=== PATIENT | female | born 1975 | race Caucasian/White ===

== ENCOUNTER 2021-03-13 01:28 | Day surgery (SDC) | payer OTHER, SELFPAY ==
[2021-03-02 10:18] VITALS: BMI 18.9
--- NOTE | 2021-03-13 07:25 | PM.HPGS ---
History of Present Illness History of Present Illness Consent: Risks, benefits, and alternatives have been discussed and questions answered. Patient agrees to proceed with procedure. Chief complaint: abnormal uterine bleeding Narrative: Bina Tineo is a 46 year old female with heavy cycles changing a tampon every hour. Cycles remain regular. Recommend workup with hysteroscopy D&C. Risks of infection, bleeding, perforation, and possible pathology were reviewed. Questions were answered and patient agrees to proceed. Review of Systems Review of Systems: not repeated day of surgery; patient states no changes in status All systems reviewed & are unremarkable except as noted in HPI and below PMFSH Past Medical History Medical History (Updated 03/13/21 @ 07:31 by Betsey Christensen MD) Migraines (normal spontaneous vaginal delivery) x1 Surgical History Surgical History (Updated 03/13/21 @ 07:30 by Betsey Christensen MD) History of X2 Status post breast augmentation 2006 Status post breast biopsy 2009 benign Status post cone biopsy of cervix 1993 Status post LEEP (loop electrosurgical excision procedure) of cervix 2004 Status post skin graft Left hand Status post tubal ligation Social History Social History Smoking packs per day: 1 Smoking cigarettes per day: 20.0 Years smoked: 12 Smoking pack-years: 12.00 Smoking status: Former smoker Tobacco type: cigarettes Second hand tobacco smoke exposure: No Substance use: never Substance use type: does not use Last use: 2009 Living arrangements: with family Spiritual care concerns: No Meds Home Medications and Allergies Home Medications Medication Instructions Recorded Confirmed Type calcium carbonate [Calcium 500] 500 mg PO DAILY 03/02/21 03/02/21 History diphenhydramine HCl [Wal-Lacho 50 mg PO HS 03/02/21 03/02/21 History (diphenhydramine)] multivit with min-folic acid 1 tablet PO DAILY 03/02/21 03/02/21 History [Adult One Daily Multivitamin] zolpidem 10 mg PO HS 03/02/21 03/02/21 History Allergies Allergy/AdvReac Type Severity Reaction Status Date / Time No Known Allergies Allergy Verified 03/02/21 10:44 Exam Const: General: healthy appearing and alert Orientation/consciousness: patient oriented x3 Resp: Effort & Inspection: normal respiratory effort Auscultation: clear to auscultation bilaterally Cardio: Rate: regular rate Rhythm: regular rhythm GI: GI Palp: Yes Soft to palpation, No Tenderness to palpation present (GI) and No Palpable mass present : External Female Exam: normal external appearance Speculum Exam - Vagina: normal appearance of the vagina and normal vaginal discharge Speculum Exam - Cervix: normal appearance of the cervix Bimanual exam- vagina & uterus: uterine size normal and consistency normal Bimanual Exam- Adnexa, other: normal adnexae and No adnexal tenderness Neuro: General: patient oriented x3 Assessment and Plan Assessment and plan (1) Menorrhagia: Code(s): N92.0 - Excessive and frequent menstruation with regular cycle Status: Acute Assessment and Plan: Plan to proceed with D&C hysteroscopy
--- NOTE | 2021-03-13 07:31 | WPDHPUPDATE1 ---
History and Physical Update Update Date/Time: 03/13/21 07:31 History and Physical has been reviewed, including an updated exam of the patient. There are NO changes in the patient's condition. Risks, benefits, and alternatives have been discussed and questions answered. Patient agrees to proceed with procedure.
[2021-03-13] MEDS: LACTATED RINGERS 1,000 ML 30 ML IV CONT (08:30)
[2021-03-13] MEDS: ACETAMINOPHEN 500 MG TABLET 1000 MG PO (08:30)
--- NOTE | 2021-03-13 09:09 | P.PNAN_ITS ---
Anes - Initial Pre Proc Eval Procedure: Operation Date: 03/13/21 09:45 Proposed Procedures p Hysteroscopy Dilation and Curettage - Betsey Christensen MD Date/Time: 03/13/21 09:09 Surgeon: Betsey Christensen MD Pre Op Diagnosis: abnormal uterine bleeding Patient Data Age: 46 Gender: F Height: 1.63 m Weight: 50 kg Allergies Allergy/AdvReac Type Severity Reaction Status Date / Time azithromycin Allergy Unknown Verified 03/13/21 08:29 Home Medications Medication Instructions Recorded Confirmed Type calcium carbonate [Calcium 500] 500 mg PO DAILY 03/02/21 03/02/21 History diphenhydramine HCl [Wal-Lacho 50 mg PO HS 03/02/21 03/02/21 History (diphenhydramine)] multivit with min-folic acid 1 tablet PO DAILY 03/02/21 03/02/21 History [Adult One Daily Multivitamin] zolpidem 10 mg PO HS 03/02/21 03/02/21 History Patient hx anesthesia problems: none Family hx anesthesia problems: none Results Review: All pre-operative results and documents have been reviewed as part of the pre-operative evaluation. [facility] Past Medical History Medical History Migraines (normal spontaneous vaginal delivery) x1 Surgical History Surgical History History of X2 Status post breast augmentation 2006 Status post breast biopsy 2008 benign Status post cone biopsy of cervix 1993 Status post LEEP (loop electrosurgical excision procedure) of cervix 2004 Status post skin graft Left hand Status post tubal ligation Social History Social History Smoking packs per day: 1 Smoking cigarettes per day: 20.0 Years smoked: 12 Smoking pack-years: 12.00 Smoking status: Former smoker Tobacco type: cigarettes Second hand tobacco smoke exposure: No Substance use: never Substance use type: does not use Last use: 2009 Living arrangements: with family Spiritual care concerns: No Anes - Eval Final PreProcedure Day of Procedure 03/13/21 09:09 Patient weight: thin Heart: regular rate and rhythm Lungs: clear to auscultation Airway: Mallampati scale Neurological: alert and oriented Last oral intake: >/= 8 hours ASA classification: II Emergent: no Anesthetic plan: proceed Anesthesia type and monitoring: general GIVS and standard monitoring Results Review: All pre-operative results and documents have been reviewed as part of the pre-operative evaluation. Informed Consent: The patient's anesthetic plan and its attendant risks and benefits were discussed with the patient/family/POA. Questions were solicited and answers provided to the satisfaction of the patient/family/POA.
[2021-03-13 09:18] VITALS: BP 105/59; PULSE 58; RESP 14; TEMP 37.6; O2SAT 100; BMI 19.8
[2021-03-13] MEDS: KETOROLAC 30 MG/ML VIAL (*BKC) IV PUSH (10:02)
--- NOTE | 2021-03-13 10:08 | W.PM.PROC2 ---
Procedure Note - Detailed Date of Procedure 03/13/21 Pre-op Diagnosis abnormal uterine bleeding Post-op Diagnosis same Procedure Performed D and C hysteroscopy Surgeon Betsey Christensen MD Anesthesia MAC and local Findings Internal os is very stenotic; uterus appears grossly atrophic with no lesions Description of Procedure The patient is taken to the operating room and placed under anesthesia in the dorsal lithotomy position. She is prepped and draped in usual sterile fashion. [place] speculum was placed in the vagina and the cervix is grasped on the anterior lip with a tenaculum. The cervix is injected in each quadrant with 1% lidocaine. The uterus is attempted to be sounded but due to internal stenosis unable to sound this time. The small dilator it is used and the internal os is able to be entered. Cervix is serially dilated to an 8 Hegar. The uterus is then sounded to 8cm. The diagnostic hysteroscope was placed with the stated findings. The internal os is very shaggy appearing due to the difficulty entering. The hysteroscope was removed in the sharp curette used to sharply curette the endometrium until a good uterine cry was noted in all areas. Minimal material was obtained consistent with the appearance. All instruments are removed. Sponge, needle, and instrument counts are correct per the OR staff. Estimated Blood Loss 5 Drains No Packing No Pathology yes (Endometrial) Complications No immediate complications Condition stable Disposition PACU
[2021-03-13 10:11] VITALS: BP 112/70; PULSE 64; RESP 14; O2SAT 97
[2021-03-13 10:40] VITALS: BP 110/67; PULSE 51
[2021-03-13 11:00] VITALS: BP 103/67; PULSE 53
== END 2021-03-13 11:07 | disposition home or self-care (01) ==
PROVIDERS: PCP Internal Medicine; Visit Provider Obstetrics & Gynecology Gynecology
PROC: 0U5B8ZZ Destruction of Endometrium, Via Natural or Artificial Opening Endoscopic (ICD-10-PCS; CPT 58563; principal; 2021-03-13 09:45)
DX: N93.9 Abnormal uterine and vaginal bleeding, unspecified (principal); N92.0 Excessive and frequent menstruation with regular cycle; N88.2 Stricture and stenosis of cervix uteri; Z87.891 Personal history of nicotine dependence
CPT/HCPCS: 58558; 88305; A9270; J1885; J2250; J2704; J3010; J7030; J7120

== ENCOUNTER 2022-11-30 12:39 | Outpatient (CLI) | payer OTHER, SELFPAY ==
[2022-11-30 13:21] LABS: INR 0.9; Prothrombin Time 12.4 Seconds (11.1-14.7)
[2022-11-30 13:22] LABS: Partial Thromboplastin Time 25.5 SECONDS (22.3-36.8)
[2022-11-30 13:23] LABS: Potassium 4.2 mmol/L (3.4-5.0)
[2022-11-30 13:30] LABS: Anion Gap 7 mmol/L (8-16); Blood Urea Nitrogen 13 mg/dL (7-17); Calcium 9.5 mg/dL (8.4-10.2); Carbon Dioxide 30 mmol/L (22-30); Chloride 100 mmol/L (98-107); Estimated Glomerular Filt Rate > 60; Glucose 89 mg/dL (65-110); Sodium 137 mmol/L (137-145)
== END 2022-11-30 12:40 | disposition home or self-care (01) ==
LOC: ANHSURGERY 12:43
PROVIDERS: Anesthesiology; PCP Internal Medicine; Visit Provider Obstetrics & Gynecology Gynecology
DX: B15.9 Hepatitis A without hepatic coma (principal); Z01.818 Encounter for other preprocedural examination
CPT/HCPCS: 36415; 80048; 85610; 85730

== ENCOUNTER 2022-12-03 02:59 | Day surgery (SDC) | payer OTHER, SELFPAY ==
--- NOTE | 2022-11-26 14:17 | SUR.PREOP ---
Report to the Outpatient Waiting Room, entrance under the green pavilion located off [facility], at time 0830 on date 12/03/22. Planned Procedure Time: 1030. Time changes happen often and if your time is changed the preop area will call you the afternoon before. - You and your visitor will be asked to self-screen and do not enter if you have any COVID symptoms. - A mask is optional within the hospital at this time. Patients may have clear liquids (water, carbonated beverages, clear teas, apple juice) until 3 hours prior to surgery with a maximum of 20 ounces. - No food from midnight until time of surgery - NO CLEAR LIQUIDS AFTER 0730 - Infants may have breast milk until 4 hours before surgery, formula 6 hours prior to surgery. - Children will be allowed to drink immediately following surgery. If applicable, please bring a bottle or sippy cup to assist with drinking. Juice, water, soda, and popsicles are readily available. For infants on formula, please bring formula the day of surgery. Pacifiers are allowed. Take the following medications with a SIP of water the morning of surgery: N/A DO NOT STOP ANY OF YOUR OTHER PRESCRIPTION MEDICATIONS PRIOR TO SURGERY ?EXCEPT THE FOLLOWING Medications to discontinue per physician ___STOP VITAMINS & SUPPLEMENTS 11/30/22 Please no make-up, nail estonian, hairspray, perfume, deodorant, or body powder the day of surgery. No jewelry (including any body piercings) or valuables the day of surgery, leave them at home. Please take a shower or bath the night before, or the morning of, surgery with an antibacterial soap. Wear comfortable, loose fitting clothing. Children are encouraged to wear pajamas. - Jewelry must be removed prior to entering the operating room. Rings and piercings that are not removed may be cut off. - The hospital will not accept responsibility for valuables. - Please leave all valuables, including medications, at home the day of surgery. If you are going home after surgery, a licensed electric pile driver operator must drive you home. - NO public transportation without another adult if you receive anesthesia. - We recommend that an adult stay with you for 24 hours following discharge. - We also recommend that you do not drive, make important decision, drink alcoholic beverages, or take any drugs that were not prescribed by your health care provider for at least 24 hours after your discharge time. For Pediatric surgeries, we recommend two adults accompany the child home. Follow any additional instructions given to you from your surgeon. If you or anyone in your household have experienced Covid symptoms in the past week, please notify your surgeon or the nurse liaison at the phone number below for possible testing. Telephone instructions given to LESLIE RAMOS and asked if any additional questions and then verbalized understanding. Patient advised to call surgeon office or pre surgery nurse liaison [phone] if any additional questions.
[2022-11-26 14:23] VITALS: BMI 20.6
--- NOTE | 2022-11-30 18:15 | WPDANESEPP ---
Anes - Eval Pre Procedure Procedure: Operation Date: 12/03/22 09:45 Proposed Procedures p Hysteroscopy Dilation and Curettage - Betsey Christensen MD Date/Time: 11/30/22 18:15 Pre Op Diagnosis: menorrhagia Patient Data Age: 47 Gender: F Height: 1.63 m Weight: 54.6 kg Allergies Allergy/AdvReac Type Severity Reaction Status Date / Time azithromycin Allergy Severe FAINT Verified 11/26/22 14:07 acetaminophen AdvReac Severe Other Verified 11/26/22 14:08 Home Medications Medication Instructions Recorded Confirmed Type calcium carbonate 500 mg calcium 500 mg PO DAILY 03/02/21 11/26/22 History (1,250 mg) tablet (Calcium 500) diphenhydramine HCl 50 mg capsule 50 mg PO HS 03/02/21 11/26/22 History (Wal-Lacho (diphenhydramine)) zolpidem 10 mg tablet 10 mg PO HS 03/02/21 11/26/22 History norgestimate 0.25 mg-ethinyl 1 tablet PO DAILY 11/26/22 11/26/22 History estradiol 35 mcg tablet (Estarylla) Patient hx anesthesia problems: post op nausea/vomiting Family hx anesthesia problems: none Results Review: All pre-operative results and documents have been reviewed as part of the pre-operative evaluation. [facility] Past Medical History Medical History (Updated 11/30/22 @ 18:15 by Sloane Haynes CRNA) Hepatitis A Migraines (normal spontaneous vaginal delivery) x1 PONV (postoperative nausea and vomiting) Surgical History Surgical History History of X2 Status post breast augmentation 2006 Status post breast biopsy 2009 benign Status post cone biopsy of cervix 1993 Status post LEEP (loop electrosurgical excision procedure) of cervix 2004 Status post skin graft Left hand Status post tubal ligation Social History Social History Smoking packs per day: 1 Smoking cigarettes per day: 20.0 Years smoked: 12 Smoking pack-years: 12.00 Smoking status: Former smoker Tobacco type: cigarettes Second hand tobacco smoke exposure: No Substance use: current Substance use type: marijuana Other substance usage details: EDIBLES NOT OFTEN Last use: 2010 Living arrangements: with family Spiritual care concerns: No Exam Day of Procedure 11/30/22 18:15
--- NOTE | 2022-12-03 07:32 | WPDHPUPDATE1 ---
History and Physical Update Update Date/Time: 12/03/22 07:32 History and Physical has been reviewed, including an updated exam of the patient. There are NO changes in the patient's condition. Risks, benefits, and alternatives have been discussed and questions answered. Patient agrees to proceed with procedure.
--- NOTE | 2022-12-03 07:32 | PM.HPGS ---
History of Present Illness History of Present Illness Consent: Risks, benefits, and alternatives have been discussed and questions answered. Patient agrees to proceed with procedure. Chief complaint: menorrhagia Narrative: Bina Tineo is a 47 year old female with a history of menorrhagia. She was placed on Xulane patch after D&C hysteroscopy March of 2021. She had a lot of breakthrough bleeding with this and was switched to oral contraceptives. She initially did well but now continues with breakthrough bleeding. She states she has not missed pills. The patient called the office stating she wished to proceed with an endometrial ablation. As it has been well over a year was recommended to proceed with D&C hysteroscopy prior to ablation. Patient presents for D&C hysteroscopy. Risks of infection, bleeding, perforation, and possible pathology were discussed. Patient voices understanding and agrees to proceed. Review of Systems Review of Systems: not repeated day of surgery; patient states no changes in status PMFSH Past Medical History Medical History (Updated 12/03/22 @ 08:42 by Betsey Christensen MD) Hepatitis A Migraines (normal spontaneous vaginal delivery) x1 PONV (postoperative nausea and vomiting) Surgical History Surgical History (Updated 12/03/22 @ 07:35 by Betsey Christensen MD) History of X2 History of hysteroscopy 04/02 benign finding Status post breast augmentation 2006 Status post breast biopsy 2008 benign Status post cone biopsy of cervix 1993 Status post LEEP (loop electrosurgical excision procedure) of cervix 2004 Status post skin graft Left hand Status post tubal ligation Social History Social History Smoking packs per day: 1 Smoking cigarettes per day: 20.0 Years smoked: 12 Smoking pack-years: 12.00 Smoking status: Former smoker Tobacco type: cigarettes Second hand tobacco smoke exposure: No Substance use: current Substance use type: marijuana Other substance usage details: EDIBLES NOT OFTEN Last use: 2009 Living arrangements: with family Spiritual care concerns: No Meds Home Medications and Allergies Home Medications Medication Instructions Recorded Confirmed Type calcium carbonate 500 mg calcium 500 mg PO DAILY 03/02/21 12/03/22 History (1,250 mg) tablet (Calcium 500) diphenhydramine HCl 50 mg capsule 50 mg PO HS 10/21/21 07/24/23 History (Wal-Lacho (diphenhydramine)) zolpidem 10 mg tablet 10 mg PO HS 03/02/21 12/03/22 History norgestimate 0.25 mg-ethinyl 1 tablet PO DAILY 11/26/22 12/03/22 History estradiol 35 mcg tablet (Estarylla) Allergies Allergy/AdvReac Type Severity Reaction Status Date / Time azithromycin Allergy Severe FAINT Verified 12/03/22 07:58 acetaminophen AdvReac Severe Other Verified 12/03/22 07:58 Exam Const: General: healthy appearing and alert Orientation/consciousness: patient oriented x3 Resp: Effort & Inspection: normal respiratory effort GI: GI Palp: Yes Soft to palpation, No Tenderness to palpation present (GI) and No Palpable mass present Neuro: General: patient oriented x3 Assessment and Plan Assessment and plan (1) Irregular bleeding: Code(s): N92.6 - Irregular menstruation, unspecified Status: Acute Assessment and Plan: plan to proceed with D&C hysteroscopy
[2022-12-03 08:04] VITALS: BP 108/56; PULSE 59; RESP 16; TEMP 36.8; O2SAT 100
--- NOTE | 2022-12-03 08:09 | SUR.PREOP ---
no tylenol given with listed allergy .
[2022-12-03] MEDS: LACTATED RINGERS 1,000 ML 30 ML IV CONT (08:27)
--- NOTE | 2022-12-03 08:27 | P.PNAN_ITS ---
Anes - Eval Final PreProcedure Day of Procedure 12/03/22 08:27 Patient weight: normal Heart: regular rate and rhythm Lungs: clear to auscultation Airway: Mallampati scale class II Neurological: alert and oriented Last oral intake: >/= 8 hours ASA classification: II Emergent: no Anesthetic plan: proceed Anesthesia type and monitoring: general GIVS and standard monitoring Results Review: All pre-operative results and documents have been reviewed as part of the pre- operative evaluation. Informed Consent: The patient's anesthetic plan and its attendant risks and benefits were discussed with the patient/family/POA. Questions were solicited and answers provided to the satisfaction of the patient/family/POA.
[2022-12-03] MEDS: KETOROLAC 30 MG/ML VIAL (*BKC) IV PUSH (10:03)
--- NOTE | 2022-12-03 10:11 | P.OP_ITS ---
Procedure Note - Detailed Date of Procedure 12/03/22 Pre-op Diagnosis Irregular menses Post-op Diagnosis Same Procedure Performed D&C hysteroscopy with excision of polyp Surgeon Betsey Christensen MD Anesthesia MAC Findings severe cervical stenosis; uterus sounds to 8cm and is anteverted; polyp noted at the right cornua Description of Procedure The patient is taken to the operating room and placed under anesthesia in the dorsal lithotomy position. She was prepped and draped in usual sterile fashion. [place] speculum was placed in the vagina and the cervix grasped on the anterior lip with a tenaculum. The uterus was attempted to be sounded and cervi terry stenosis is encountered. The os Finders are used without success. The small dilators are used without success. The sound was again tried and not successful. The os Finders are used with additional for such and I was able to break through the external os stenosis. The small dilators were then used and appeared to be through the internal stenosis. The hysteroscope was placed and with water dissection the proper canal is noted anteriorly and able to be directed into the cavity. A polyp was noted at the right cornu. The resection device is opened and placed and the polyp removed in its entirety. The hysteroscope was removed and the sharp curette used to curette the endometrium until a good uterine cry was noted in all areas. The uterus is sounded to 8cm. All instruments are removed. Sponge, needle, and instrument counts are correct per the OR staff. Patient is awakened from anesthesia and taken to recovery in stable condition. Estimated Blood Loss 5 Drains No Packing No Pathology Yes ( Endometrial shavings and curettings) Complications No immediate complications Condition Stable Disposition PACU
[2022-12-03 10:12] VITALS: BP 113/54; PULSE 60; RESP 16; O2SAT 99
[2022-12-03 10:40] VITALS: BP 101/62; PULSE 50; RESP 20
[2022-12-03 10:55] VITALS: BP 101/57; PULSE 52; RESP 20
== END 2022-12-03 10:59 | disposition home or self-care (01) ==
PROVIDERS: PCP Internal Medicine; Visit Provider Obstetrics & Gynecology Gynecology
PROC: 0U5B8ZZ Destruction of Endometrium, Via Natural or Artificial Opening Endoscopic (ICD-10-PCS; CPT 58563; principal; 2022-12-03 09:45)
DX: N92.6 Irregular menstruation, unspecified (principal); N84.0 Polyp of corpus uteri; B15.9 Hepatitis A without hepatic coma; Z87.891 Personal history of nicotine dependence
CPT/HCPCS: 58558; 36415; 80048; 85610; 85730; 88305; J1100; J1885; J2250; J2405; J2704; J3010; J7120

== ENCOUNTER 2022-12-17 01:51 | Day surgery (SDC) | payer OTHER, SELFPAY ==
[2022-12-05 15:10] VITALS: BMI 20.5
--- NOTE | 2022-12-05 15:26 | PC.NURSE ---
Report to the Outpatient Waiting Room, entrance under the green pavilion located off [facility], at 0945 on 12/17/22. Planned Procedure Time: 1145. Time changes happen often and if your time is changed the preop area will call you the afternoon before. - You and your visitor will be asked to self-screen and do not enter if you have any COVID symptoms. - A mask is optional within the hospital at this time. Patients may have clear liquids (water, carbonated beverages, clear teas, apple juice) until 3 hours prior to surgery with a maximum of 20 ounces. - No food from midnight until time of surgery. Take the following medications with a SIP of water the morning of surgery: n/a DO NOT STOP ANY OF YOUR OTHER PRESCRIPTION MEDICATIONS PRIOR TO SURGERY ?EXCEPT THE FOLLOWING Medications to discontinue per physician supplements Date to take last dose 3 days prior Please no make-up, nail telugu, hairspray, perfume, deodorant, or body powder the day of surgery. No jewelry (including any body piercings) or valuables the day of surgery, leave them at home. Please take a shower or bath the night before, or the morning of, surgery with an antibacterial soap. Wear comfortable, loose fitting clothing. - Jewelry must be removed prior to entering the operating room. Rings and piercings that are not removed may be cut off. - The hospital will not accept responsibility for valuables. - Please leave all valuables, including medications, at home the day of surgery. If you are going home after surgery, a licensed hook up driver must drive you home. - NO public transportation without another adult if you receive anesthesia. - We recommend that an adult stay with you for 24 hours following discharge. - We also recommend that you do not drive, make important decision, drink alcoholic beverages, or take any drugs that were not prescribed by your health care provider for at least 24 hours after your discharge time. Follow any additional instructions given to you from your surgeon. If you or anyone in your household have experienced Covid symptoms in the past week, please notify your surgeon or the nurse liaison at the phone number below for possible testing. Telephone instructions given to patient and asked if any additional questions and then verbalized understanding. Patient instructed to have Hepatitis profile results from 12/11/22 faxed to [facility] @ [phone] and to f/u on 12/13/22 per phone with [facility] @ [phone] to verify results were received. Patient advised to call surgeon office or pre surgery nurse liaison [phone] if any additional questions.
--- NOTE | 2022-12-17 07:39 | WPDHPUPDATE1 ---
History and Physical Update Update Date/Time: 12/17/22 07:39 History and Physical has been reviewed, including an updated exam of the patient. There are NO changes in the patient's condition. Risks, benefits, and alternatives have been discussed and questions answered. Patient agrees to proceed with procedure.
--- NOTE | 2022-12-17 07:39 | PM.HPGS ---
History of Present Illness History of Present Illness Consent: Risks, benefits, and alternatives have been discussed and questions answered. Patient agrees to proceed with procedure. Chief complaint: menorrhagia Narrative: Bina Tineo is a 47 year old female with menorrhagia. Patient with benign hysteroscopy in November of 2022 with a small polyp. Patient has elected to proceed with Elina endometrial ablation for her menorrhagia. Risks of infection, bleeding, and perforation were reviewed. Success is reviewed with the patient as well. Patient voices understanding and agrees to proceed. [facility] Past Medical History Medical History (Updated 12/03/22 @ 08:42 by Betsey Christensen MD) Hepatitis A Migraines (normal spontaneous vaginal delivery) x1 PONV (postoperative nausea and vomiting) Surgical History Surgical History (Updated 12/17/22 @ 07:40 by Betsey Christensen MD) History of X2 History of hysteroscopy 04/02 benign finding 12/02 Benign findings with a small polyp Status post breast augmentation 2006 Status post breast biopsy 2008 benign Status post cone biopsy of cervix 1993 Status post LEEP (loop electrosurgical excision procedure) of cervix 2004 Status post skin graft Left hand Status post tubal ligation Social History Social History Smoking packs per day: 1 Smoking cigarettes per day: 20.0 Years smoked: 10 Smoking pack-years: 10.00 Smoking status: Former smoker Tobacco type: cigarettes Second hand tobacco smoke exposure: No Smoking end date: 12/05/06 Alcohol intake: current Alcohol use details: no drink in past 3 months r/t liver dx Substance use: current Substance use type: other Other substance usage details: cbd edibles bimonthly recently Last use: 2009 Living arrangements: with family Spiritual care concerns: No Meds Home Medications and Allergies Home Medications Medication Instructions Recorded Confirmed Type calcium carbonate 500 mg calcium 500 mg PO DAILY 03/02/21 12/05/22 History (1,250 mg) tablet (Calcium 500) diphenhydramine HCl 50 mg capsule 50 mg PO HS 03/02/21 12/05/22 History (Wal-Lacho (diphenhydramine)) zolpidem 10 mg tablet 10 mg PO HS 03/02/21 12/05/22 History norgestimate 0.25 mg-ethinyl 1 tablet PO DAILY 11/26/22 12/05/22 History estradiol 35 mcg tablet (Estarylla) misoprostol 100 mcg tablet 100 mcg PO HS 12/05/22 12/05/22 History (Cytotec) Allergies Allergy/AdvReac Type Severity Reaction Status Date / Time azithromycin Allergy Severe FAINT Verified 12/03/22 07:58 acetaminophen AdvReac Severe Other Verified 12/03/22 07:58 Exam Const: General: healthy appearing and alert Orientation/consciousness: patient oriented x3 Resp: Effort & Inspection: normal respiratory effort GI: GI Palp: Yes Soft to palpation, No Tenderness to palpation present (GI) and No Palpable mass present : External Female Exam: normal external appearance Speculum Exam - Vagina: normal appearance of the vagina and normal vaginal discharge Speculum Exam - Cervix: normal appearance of the cervix Bimanual exam- vagina & uterus: uterine size normal and consistency normal Bimanual Exam- Adnexa, other: normal adnexae and No adnexal tenderness Neuro: General: patient oriented x3 Assessment and Plan Assessment and plan (1) Menorrhagia: Code(s): N92.0 - Excessive and frequent menstruation with regular cycle Status: Acute Assessment and Plan: plan to proceed with Elina endometrial ablation
[2022-12-17] MEDS: LACTATED RINGERS 1,000 ML 30 ML IV CONT (10:06)
--- NOTE | 2022-12-17 10:15 | WPDANESEPPF ---
Anes - Initial Pre Proc Eval Procedure: Operation Date: 12/17/22 11:45 Proposed Procedures p Hysteroscopy with Elina Endometrial Ablation - Betsey Christensen MD Date/Time: 12/17/22 10:15 Surgeon: Betsey Christensen MD Pre Op Diagnosis: menorrhagia Patient Data Age: 47 Gender: F Height: 1.63 m Weight: 55.7 kg Allergies Allergy/AdvReac Type Severity Reaction Status Date / Time azithromycin Allergy Severe FAINT Verified 12/17/22 09:46 acetaminophen AdvReac Severe Other Verified 12/17/22 09:46 Home Medications Medication Instructions Recorded Confirmed Type calcium carbonate 500 mg calcium 500 mg PO DAILY 03/02/21 12/17/22 History (1,250 mg) tablet (Calcium 500) diphenhydramine HCl 50 mg capsule 50 mg PO HS 03/02/21 12/17/22 History (Wal-[place]acho (diphenhydramine)) zolpidem 10 mg tablet 10 mg PO HS 03/02/21 12/17/22 History norgestimate 0.25 mg-ethinyl 1 tablet PO DAILY 11/26/22 12/17/22 History estradiol 35 mcg tablet (Estarylla) misoprostol 100 mcg tablet 100 mcg PO HS 12/05/22 12/17/22 History (Cytotec) Patient hx anesthesia problems: none Family hx anesthesia problems: none Results Review: All pre-operative results and documents have been reviewed as part of the pre-operative evaluation. [facility] Past Medical History Medical History Hepatitis A Migraines (normal spontaneous vaginal delivery) x1 PONV (postoperative nausea and vomiting) Surgical History Surgical History History of X2 History of hysteroscopy 04/02 benign finding 12/02 Benign findings with a small polyp Status post breast augmentation 2006 Status post breast biopsy 2008 benign Status post cone biopsy of cervix 1993 Status post LEEP (loop electrosurgical excision procedure) of cervix 2004 Status post skin graft Left hand Status post tubal ligation Social History Social History Smoking packs per day: 1 Smoking cigarettes per day: 20.0 Years smoked: 10 Smoking pack-years: 10.00 Smoking status: Former smoker Tobacco type: cigarettes Second hand tobacco smoke exposure: No Smoking end date: 12/05/06 Alcohol intake: current Alcohol use details: no drink in past 3 months r/t liver dx Substance use: current Substance use type: other Other substance usage details: cbd edibles bimonthly recently Last use: 2009 Living arrangements: with family Spiritual care concerns: No Anes - Eval Final PreProcedure Day of Procedure 12/17/22 10:15 Patient weight: normal Heart: regular rate and rhythm Lungs: clear to auscultation Airway: Mallampati scale class II Neurological: alert and oriented Last oral intake: >/= 8 hours ASA classification: II Emergent: no Anesthetic plan: proceed Anesthesia type and monitoring: general GIVS and standard monitoring Results Review: All pre-operative results and documents have been reviewed as part of the pre-operative evaluation. Informed Consent: The patient's anesthetic plan and its attendant risks and benefits were discussed with the patient/family/POA. Questions were solicited and answers provided to the satisfaction of the patient/family/POA.
[2022-12-17] MEDS: LIDOCAINE 1% BUFFERED WITH 8.4% SODIUM BICARB 1 ML SYRINGE 10 ML INFILTRATE (10:44)
[2022-12-17 10:55] VITALS: BP 97/57; PULSE 58; RESP 14; O2SAT 99
--- NOTE | 2022-12-17 10:57 | W.PM.PROC2 ---
Procedure Note - Detailed Date of Procedure 12/17/22 Pre-op Diagnosis menorrhagia Post-op Diagnosis Same Procedure Performed hysteroscopy with Elina endometrial ablation Surgeon Betsey Christensen MD Anesthesia MAC and Local Findings uterus sounds to 8cm and appears grossly normal Description of Procedure The patient is taken to the operating room and placed under anesthesia in the dorsal lithotomy position. She was prepped and draped in usual sterile fashion. [place] speculum was placed in the vagina and the cervix grasped on the anterior lip with a tenaculum. The cervix is injected in each quadrant with 1% lidocaine. The uterus is sounded to 8cm. The diagnostic hysteroscope was placed with the above-stated findings the hysteroscope was removed. The cervix is serially dilated to an 8 Hegar. The Elina device is opened and placed and set at 5cm. Cavity assessment passed on the 1st attempt and the treatment cycle lasted the full 2 minutes. The ablation device is removed and the hysteroscope replaced. Good ablation effect was noted. All instruments are removed. Sponge, needle, and instrument counts are correct per the OR staff. Patient is awakened from anesthesia and taken to recovery in stable condition. Estimated Blood Loss 5 Drains No Packing No Pathology None sent Complications No immediate complications Condition Stable Disposition PACU
[2022-12-17 11:25] VITALS: BP 98/53; PULSE 47; RESP 16
[2022-12-17 11:50] VITALS: BP 108/60; PULSE 49; RESP 16
== END 2022-12-17 11:55 | disposition home or self-care (01) ==
PROVIDERS: PCP Internal Medicine; Visit Provider Obstetrics & Gynecology Gynecology
PROC: 0U5B8ZZ Destruction of Endometrium, Via Natural or Artificial Opening Endoscopic (ICD-10-PCS; CPT 58563; principal; 2022-12-17 11:45)
DX: N92.0 Excessive and frequent menstruation with regular cycle (principal); Z87.891 Personal history of nicotine dependence
CPT/HCPCS: 58563; J2250; J2405; J2704; J3010; J7120

== ENCOUNTER 2024-06-26 10:13 | Outpatient (CLI) | payer OTHER, SELFPAY ==
--- NOTE | ~2024-06-26 | MM_ITS ---
EXAMINATION: MM scrn marco implant BI w victorina HISTORY: Screening mammogram TECHNIQUE: Craniocaudal and mediolateral oblique 3-D tomosynthesis images with implant displacement a nd synthetic 2-D images were generated. Craniocaudal and mediolateral oblique views of the breasts wi thout implant displacement were obtained using full field digital mammography. CAD analysis was submi tted and interpreted. COMPARISON: Comparison to multiple prior studies sequentially, with oldest reviewed study dated 12/22. BREAST PARENCHYMAL COMPOSITION: Not dense: There are scattered areas of fibroglandular density. FINDINGS: There is no evidence of suspicious mass, calcification, or architectural distortion to sugg est malignancy in either breast. There has been no suspicious interval change. IMPRESSION: 1. No mammographic evidence of malignancy. 2. Recommend routine screening mammography in one year. BI-RADS Category 1: Negative Reviewed, dictated and finalized at location B. [employer]
== END 2024-06-26 10:14 | disposition home or self-care (01) ==
LOC: MICIMG 10:14
PROVIDERS: PCP Nurse Practitioner; Visit Provider Nurse Practitioner
DX: Z12.31 Encounter for screening mammogram for malignant neoplasm of breast (principal)
CPT/HCPCS: 77063; 77067